=== PATIENT | male | born 1970 | race Two or more races ===

== ENCOUNTER 2017-06-10 18:34 | Emergency (ER) | payer BC ==
[~2017-06-10] VITALS: Ht 175.3 cm; Wt 93.4 kg
[2017-06-10] MEDS ORDERED: cloNIDine HCL 0.1 MG TAB ONE (18:43)
[2017-06-10] MEDS ORDERED: LORazepam 0.5 MG TAB ONE (18:43)
[2017-06-10] MEDS ORDERED: cloNIDine HCL 0.1 MG TAB PO ONE (19:00)
[2017-06-10] MEDS ORDERED: LORazepam 0.5 MG TAB PO ONE (19:00)
[2017-06-10 21:55] VITALS: BP 144/95
== END 2017-06-10 22:17 | disposition home or self-care (01) ==
LOC: ER 18:34 → EDBD 18:34 → ER 22:17
DX: I10 Essential (primary) hypertension (principal); F41.9 Anxiety disorder, unspecified
CPT/HCPCS: 93005